=== PATIENT | male | born 1940 | race Caucasian/White ===

== ENCOUNTER 2024-12-30 16:06 | Emergency (ER) | payer OTHER ==
[~2024-12-30] VITALS: Ht 185.4 cm; Wt 79.4 kg
[2024-12-30] MEDS ORDERED: ACETAMINOPHEN ES 500 MG TABLET ONE (16:44)
[2024-12-30] MEDS ORDERED: MORPHINE SULFATE INJ 2 MG/ML DISP.SYRIN ONE (16:44)
[2024-12-30] MEDS ORDERED: METOCLOPRAMIDE HCL 10 MG/10 ML UDC ONE (16:44)
[2024-12-30] MEDS ORDERED: METOCLOPRAMIDE HCL 10 MG/2 ML VIAL ONE (16:45)
[2024-12-30] MEDS: MORPHINE SULFATE INJ 2 MG/ML DISP.SYRIN IV ONE (17:00)
[2024-12-30] MEDS: IV NS 0.9% 500 ML BAG IV ONE (17:00)
[2024-12-30] MEDS: ACETAMINOPHEN ES 500 MG TABLET PO ONE (17:00)
[2024-12-30] MEDS: METOCLOPRAMIDE HCL 10 MG/2 ML VIAL IV ONE (17:00)
[2024-12-30 19:10] VITALS: BP 103/66; TEMP 98.5; O2SAT 99
== END 2024-12-30 19:11 | disposition home or self-care (01) ==
LOC: ER 16:29
DX: G89.29 Other chronic pain (principal); R51.9 Headache, unspecified; M54.2 Cervicalgia; Z60.2 Problems related to living alone
CPT/HCPCS: 99285; 72125; 96374; 96375; 70450; J2765; J2270; J8597